=== PATIENT | male | born 1945 | race Caucasian/White ===

== ENCOUNTER 2020-11-12 15:31 | Inpatient (IN) | payer MEDICARE ==
[~2020-11-12] VITALS: Ht 167.6 cm; Wt 78.9 kg
--- NOTE | 2020-11-12 15:45 | NUR ---
Pt was at 's office, reportedly had generalized weakness; equal housing relocation, symetrical smile & tounge, facial nerves equal/symetrical. Pt c/o SOB, denies dizziness, CP, n/v. Some audible wheezing heard.
[2020-11-12 16:17] LABS: HEMATOCRIT 31.2 % (36.7-47.1); MEAN CORPUSCULAR HEMOGLOBIN 30.8 uug (23.8-33.4); MEAN CORPUSCULAR VOLUME 91.9 fL (73.0-96.2); PLATELET COUNT (AUTO) 180 K/uL (152-348)
[2020-11-12 16:18] LABS: CARBON DIOXIDE 24 mmol/L (21-32); CHLORIDE 100 mmol/L (98-107); CREATININE 2.7 mg/dL (0.6-1.3); GLUCOSE 248 mg/dL (74-106); POTASSIUM 5.5 mmol/L (3.5-5.1); UREA NITROGEN, BLOOD 67 mg/dL (7-18)
[2020-11-12 16:26] LABS: *BILIRUBIN,URIN NEGATIVE (NEGATIVE); *BLOOD, URINE 1+ (NEGATIVE); *CLARITY,URINE CLEAR (CLEAR); *COLOR,URINE YELLOW (YELLOW); *KETONES,URINE NEGATIVE (NEGATIVE); *UROBILINOGEN,URINE 0.2 E.U./dl (NORMAL); LEUKOCYTE ESTERASE ,URINE NEGATIVE (NEGATIVE); NITRITE, URINE NEGATIVE (NEGATIVE); PH,URINE 5.5 (5.0-8.0); UGLUCOSE NEGATIVE (NEGATIVE)
[2020-11-12] MEDS ORDERED: FUROSEMIDE 40 MG/4 ML VIAL IV ONE (16:30)
[2020-11-12 16:31] LABS: ALANINE AMINOTRANSFERASE 49 U/L (16-63); ALKALINE PHOSPHATASE 108 U/L (50-136); ASPARTATE AMINOTRANSFERASE 34 U/L (15-37); BILIRUBIN,DIRECT 0.2 mg/dL (0.0-0.2); BILIRUBIN,TOTAL 0.5 mg/dL (0.2-1.0); TOTAL PROTEIN, SERUM 7.6 g/dL (6.4-8.2)
[2020-11-12 16:42] LABS: MAGNESIUM 2.1 mg/dL (1.8-2.4); PHOSPHOROUS 4.4 mg/dL (2.5-4.9)
[2020-11-12] MEDS ORDERED: INSULIN REGULAR, HUMAN 300 UNIT/3 ML VIAL IV ONE (16:45)
[2020-11-12] MEDS ORDERED: DEXTROSE 50% 50 ML DISP.SYRIN IV ONE (16:45)
[2020-11-12] MEDS ORDERED: SODIUM POLYSTYRENE SULFONATE 15 G/60 ML LIQUID UDC PO ONE (16:45)
[2020-11-12] MEDS ORDERED: ALBUTEROL SULFATE 2.5 MG/3 ML NEBU NEB ONE (16:45)
[2020-11-12 16:48] LABS: BACTERIA,URINE NONE SEEN /HPF (NONE SEEN); SQUAMOUS EPITHELIAL CELL,UR FEW /HPF (NONE SEEN); WBC,URINE 0-3 /HPF (0-3)
[2020-11-12] MEDS ORDERED: FUROSEMIDE 40 MG/4 ML VIAL ONE (17:07)
[2020-11-12] MEDS ORDERED: DEXTROSE 50% 50 ML DISP.SYRIN ONE (17:08)
[2020-11-12] MEDS ORDERED: FUROSEMIDE 20 MG/2 ML VIAL ONE (17:08)
[2020-11-12] MEDS ORDERED: SODIUM POLYSTYRENE SULFONATE 15 G/60 ML LIQUID UDC ONE (17:08)
[2020-11-12] MEDS ORDERED: INSULIN REGULAR, HUMAN 300 UNIT/3 ML VIAL ONE (17:09)
[2020-11-12] MEDS ORDERED: AZIL1TAB2 PO (17:25)
[2020-11-12] MEDS ORDERED: MIRA25TA PO (17:25)
[2020-11-12] MEDS ORDERED: OMEP40CA21 PO (17:25)
[2020-11-12] MEDS ORDERED: CINA30TA2 PO (17:25)
[2020-11-12] MEDS ORDERED: IRBE150T28 PO (17:25)
[2020-11-12] MEDS ORDERED: NIFE-34 PO (17:25)
[2020-11-12] MEDS ORDERED: LEVO88TA2 PO (17:25)
[2020-11-12] MEDS ORDERED: FURO-152 PO (17:25)
[2020-11-12] MEDS ORDERED: CARV25TA PO (17:25)
[2020-11-12] MEDS ORDERED: OXYB10TA4 PO (17:25)
[2020-11-12] MEDS ORDERED: ATOR40TA PO (17:25)
[2020-11-12] MEDS ORDERED: ALLO100T PO (17:25)
[2020-11-12] MEDS ORDERED: INSU100I56 SQ (17:25)
[2020-11-12] MEDS ORDERED: TRAZ-257 PO (17:25)
[2020-11-12] MEDS ORDERED: ASPI81TA31 PO (17:25)
[2020-11-12] MEDS ORDERED: ALBUTEROL SULFATE 2.5 MG/3 ML NEBU ONE (17:29)
[2020-11-12 17:58] LABS: THYROID STIMULATING HORMONE 3.981 mIU/mL (0.358-3.740)
--- NOTE | 2020-11-12 19:15 | NUR ---
Patient will be going to telemetry room 305.
--- NOTE | 2020-11-12 19:22 | NUR ---
Patient sitting upright on bed, resting, no acute distress is noted at this time.
[2020-11-12] MEDS ORDERED: ONDANSETRON 4 MG/2 ML VIAL IV PRN (19:30)
[2020-11-12] MEDS ORDERED: MAGNESIUM HYDROXIDE 30 ML LIQUID UDC PO PRN (19:30)
[2020-11-12] MEDS ORDERED: Z GUARD REMEDY PASTE 57 GM TUBE TOP PRN (19:30)
--- NOTE | 2020-11-12 19:35 | NUR ---
Report given to RN Will.
--- NOTE | 2020-11-12 20:00 | NUR ---
Pt. admitted to telemetry room 305, under care of Dr. Higuear Belongs List completed
--- NOTE | 2020-11-12 20:15 | NUR ---
PATIENT ALERT ORIENTED, NO SOB NO CHEST PAIN, ON TELE MONITOR SINUS RHYTHM AT THIS TIME. PATIENT HAS NO COMPLAIN OF PAIN AT THIS TIME, KEPT COMFORTABLE, CONT TO MONITOR.
[2020-11-12 20:20] VITALS: BP 161/61
[2020-11-12] MEDS ORDERED: TRAZODONE 100 MG TABLET PO SCH (21:00)
[2020-11-12] MEDS: ATORVASTATIN 40 MG TABLET PO SCH (21:31)
--- NOTE | 2020-11-12 22:09 | NUR ---
NOTIFY DR MONCADA PATIENT REQUEST TO HAVE TRAZADONE MEDS AT NIGHT, WITH ORDER.
[2020-11-13] VITALS (7 sets, daily range): BP systolic 136–167; BP diastolic 51–76
[2020-11-13] MEDS: PANTOPRAZOLE SODIUM 40 MG TABLET.DR PO SCH (06:03)
--- NOTE | 2020-11-13 06:43 | NUR ---
PATIENT ALERT ORIENTED, NO SOB NO CHEST PAIN, TELE MONITOR SINUS RHYTHM, OXYGEN SAT 95 TO 96%. ASSISTED WITH TOILETING, CONT TO MONITOR.
[2020-11-13 06:54] LABS: HEMATOCRIT 29.3 % (36.7-47.1); MEAN CORPUSCULAR VOLUME 92.6 fL (73.0-96.2); PLATELET COUNT (AUTO) 172 K/uL (152-348)
[2020-11-13 07:18] LABS: CARBON DIOXIDE 27 mmol/L (21-32); CHLORIDE 104 mmol/L (98-107); CHOLESTEROL 95 mg/dL (<200); CREATININE 2.5 mg/dL (0.6-1.3); GLUCOSE 139 mg/dL (74-106); HDL CHOLESTEROL 49 mg/dL (40-60); PHOSPHOROUS 3.9 mg/dL (2.5-4.9); POTASSIUM 4.1 mmol/L (3.5-5.1); TRIGLYCERIDES 41 MG/DL (30-150); UREA NITROGEN, BLOOD 59 mg/dL (7-18)
[2020-11-13] MEDS ORDERED: NIFEdipine XL 60 MG TABSR PO SCH (09:00)
[2020-11-13] MEDS ORDERED: Mirabegron (Myrbetriq) 25 MG) PO SCH (09:00)
[2020-11-13] MEDS ORDERED: Medication Not On Formulary EA (Omeprazole 40 MG) PO SCH (09:00)
[2020-11-13] MEDS ORDERED: TRAZODONE 100 MG TABLET PO SCH (09:00)
[2020-11-13] MEDS: FUROSEMIDE 40 MG/4 ML VIAL IV SCH (09:16)
[2020-11-13] MEDS: ASPIRIN 81 MG TAB.CHEW PO SCH (09:16)
[2020-11-13] MEDS: OXYBUTYNIN XL 5 MG TABSR PO SCH (09:16)
[2020-11-13] MEDS: CINACALCET HCL 30 MG TABLET PO SCH (09:16)
[2020-11-13] MEDS: LEVOTHYROXINE SODIUM 88 MCG TABLET PO SCH (09:17)
[2020-11-13] MEDS: CARVEDILOL 25 MG TABLET PO SCH ×2 (09:17→17:51)
[2020-11-13] MEDS: ACETAMINOPHEN 325 MG TABLET PO PRN (09:29)
[2020-11-13] MEDS: TAMSULOSIN HCL 0.4 MG CAP.SR.24H PO SCH (15:14)
--- NOTE | 2020-11-13 15:16 | NUR ---
Pt received to care awake, oriented x4. No distress. Pt was compliant with medications. Pt is using a urinal. Pt was c/o headache and received Tylenol 650 mg, which was effective. side rails are up, call light is within reach.
[2020-11-13] MEDS ORDERED: NIFE90TA61 PO (16:19)
[2020-11-13] MEDS ORDERED: TRAZ-182 PO (16:19)
[2020-11-13] MEDS ORDERED: IRBE75TA11 PO (16:19)
--- NOTE | 2020-11-13 16:30 | NUR ---
Attempted to insert Morales (Fr 16). Unable to due resistance. Dr. Painting was notified.
[2020-11-13] MEDS ORDERED: DEXTROSE 50% 50 ML DISP.SYRIN IV PRN (17:00)
[2020-11-13] MEDS: TRAZODONE 50 MG TABLET PO SCH (20:27)
[2020-11-13] MEDS: ATORVASTATIN 40 MG TABLET PO SCH (20:27)
[2020-11-13] MEDS: BLOOD SUGAR DIAGNOSTIC 1 EACH STRIP VI SCH (21:00)
[2020-11-13] MEDS: INSULIN REGULAR, HUMAN 300 UNIT/3 ML VIAL SQ PRN (21:04)
[2020-11-14] VITALS: BP 133/52
[2020-11-14] MEDS: TAMSULOSIN HCL 0.4 MG CAP.SR.24H PO SCH ×3 (00:11→20:02)
--- NOTE | 2020-11-14 02:53 | NUR ---
Received patient on bed with no respiratory distress noted. Denies pain and discomfort at this time. Urinal at bedside. All due medications given and tolerated well. Accuchecks done with sliding scale given. Bandage on left index finger applies as requested d/t to trigger finger per patient information. All needs attended. Call light placed within reach. Frequent visual checks done. Will continue to monitor.
[2020-11-14 04:05] VITALS: BP 114/43
[2020-11-14] MEDS: ACETAMINOPHEN 325 MG TABLET PO PRN ×2 (04:33→10:12)
--- NOTE | 2020-11-14 05:58 | NUR ---
Patient slept throughout the night, easily arousable for care. Tylenol PRN given for headache, noted effective. All needs attended. Call light placed within reach. Will endorse to AM shift for continuity of care.
[2020-11-14] MEDS: PANTOPRAZOLE SODIUM 40 MG TABLET.DR PO SCH (06:11)
[2020-11-14] MEDS: BLOOD SUGAR DIAGNOSTIC 1 EACH STRIP VI SCH ×4 (06:35→20:37)
--- NOTE | 2020-11-14 07:00 | NUR ---
Pt received to care awake, oriented x4. No distress noted . Pt is using a urinal. call light is within reach.
[2020-11-14 07:48] LABS: HEMATOCRIT 28.8 % (36.7-47.1); MEAN CORPUSCULAR HEMOGLOBIN 31.1 uug (23.8-33.4); MEAN CORPUSCULAR VOLUME 92.2 fL (73.0-96.2); PLATELET COUNT (AUTO) 156 K/uL (152-348)
[2020-11-14] MEDS: INSULIN REGULAR, HUMAN 300 UNIT/3 ML VIAL SQ PRN ×4 (07:52→20:39)
[2020-11-14 08:01] LABS: CARBON DIOXIDE 27 mmol/L (21-32); CHLORIDE 101 mmol/L (98-107); CREATININE 2.3 mg/dL (0.6-1.3); GLUCOSE 164 mg/dL (74-106); POTASSIUM 4.2 mmol/L (3.5-5.1); UREA NITROGEN, BLOOD 50 mg/dL (7-18)
[2020-11-14] MEDS: FUROSEMIDE 40 MG/4 ML VIAL IV SCH (08:11)
[2020-11-14] MEDS: CINACALCET HCL 30 MG TABLET PO SCH (08:13)
[2020-11-14] MEDS: CARVEDILOL 25 MG TABLET PO SCH ×2 (08:13→16:06)
[2020-11-14] MEDS: LEVOTHYROXINE SODIUM 88 MCG TABLET PO SCH (08:13)
[2020-11-14] MEDS: OXYBUTYNIN XL 5 MG TABSR PO SCH (08:13)
[2020-11-14] MEDS: ASPIRIN 81 MG TAB.CHEW PO SCH (08:13)
[2020-11-14 09:13] LABS: IRON, SERUM 47 ug/dL (50-175)
[2020-11-14 09:21] LABS: FERRITIN 450 ng/mL (26-388)
--- NOTE | 2020-11-14 09:30 | NUR ---
folly catheter was inserted by dr Higuera
[2020-11-14] MEDS: NIFEdipine XL 90 MG TABSR PO SCH (10:17)
[2020-11-14 12:36] VITALS: BP 135/58
[2020-11-14 16:00] VITALS: BP 137/57
[2020-11-14] MEDS: HYDROCODONE/APAP 5-325MG TABLET PO PRN (18:08)
[2020-11-14] MEDS: TRAZODONE 50 MG TABLET PO SCH (20:02)
[2020-11-14] MEDS: ATORVASTATIN 40 MG TABLET PO SCH (20:02)
[2020-11-14 20:36] VITALS: BP 138/56
--- NOTE | 2020-11-14 21:31 | NUR ---
in room sleeping vs are stable call light with in reach
[2020-11-15 04:22] VITALS: BP 119/52
[2020-11-15] MEDS: PANTOPRAZOLE SODIUM 40 MG TABLET.DR PO SCH (06:10)
[2020-11-15] MEDS: BLOOD SUGAR DIAGNOSTIC 1 EACH STRIP VI SCH ×4 (06:29→20:55)
--- NOTE | 2020-11-15 07:30 | NUR ---
EWCEIVED PATIENT IN BED AWAKE ALERT AND ORIENTED DENIES PAIN OR DISCOMFORTS AT THIS TIME TELE IS SR REEDER CATH TO GRAVITY DRAINAGE WITH NO HEMATURIA NO S/S OF HYPO/HYPERGLYCEMIC REACTIONS AT THIS TIME CALL LIGHTS AND PERSONAL BELONGINGS ARE WITHIN EASY REACH MADE COMFORTABLE WILL CONTINUE TO OBSERVE.
[2020-11-15] MEDS: INSULIN REGULAR, HUMAN 300 UNIT/3 ML VIAL SQ PRN ×3 (07:58→20:58)
[2020-11-15] MEDS: OXYBUTYNIN XL 5 MG TABSR PO SCH (08:02)
[2020-11-15] MEDS: FUROSEMIDE 40 MG/4 ML VIAL IV SCH (08:03)
[2020-11-15] MEDS: CINACALCET HCL 30 MG TABLET PO SCH (08:03)
[2020-11-15] MEDS: TAMSULOSIN HCL 0.4 MG CAP.SR.24H PO SCH ×2 (08:03→20:08)
[2020-11-15] MEDS: ASPIRIN 81 MG TAB.CHEW PO SCH (08:03)
[2020-11-15] MEDS: CARVEDILOL 25 MG TABLET PO SCH ×2 (08:04→16:49)
[2020-11-15] MEDS: NIFEdipine XL 90 MG TABSR PO SCH (08:54)
[2020-11-15] MEDS: LEVOTHYROXINE SODIUM 88 MCG TABLET PO SCH (08:54)
[2020-11-15 10:25] LABS: HEMATOCRIT 30.6 % (36.7-47.1); MEAN CORPUSCULAR VOLUME 92.2 fL (73.0-96.2); PLATELET COUNT (AUTO) 166 K/uL (152-348)
[2020-11-15 10:28] LABS: CARBON DIOXIDE 26 mmol/L (21-32); CHLORIDE 99 mmol/L (98-107); CREATININE 2.6 mg/dL (0.6-1.3); POTASSIUM 4.3 mmol/L (3.5-5.1); UREA NITROGEN, BLOOD 59 mg/dL (7-18)
[2020-11-15 11:00] LABS: GLUCOSE 333 mg/dL (74-106)
[2020-11-15 11:36] VITALS: BP 122/56
--- NOTE | 2020-11-15 12:34 | NUR ---
SEEN IN [facility] WITH FRONT WHEEL WALKER WITH SLOW STEADY GAIT NO SOB AT THIS TIME.
[2020-11-15 15:15] VITALS: BP 125/65
--- NOTE | 2020-11-15 17:52 | NUR ---
PATIENT C/O FEELS WET CHECKED THE DIAPER NOTED VERY SMALL AMOUNT OF URINE BUT THE URINE IS FLOWING THE DRAINAGE TUBBING HAS CLEAR FRESH URINE IN IT SO I PUSHED IN THE REEDER A LITTLE AND ADDED SOME STERILE WATER INTO THE BALLOON CHANGE AND KEPT HIM DRY AND COMFORTABLE AT THIS TIME WILL CONTINUE TO OBSERVE AND INFORM DR MONCADA IF SEVERE LEAK IS NOTED.
--- NOTE | 2020-11-15 19:00 | NUR ---
Pt received to care awake, oriented x4. No distress. Pt was compliant with medications. . side rails are up, call light is within reach.
[2020-11-15] MEDS: TRAZODONE 50 MG TABLET PO SCH (20:08)
[2020-11-15] MEDS: ATORVASTATIN 40 MG TABLET PO SCH (20:08)
[2020-11-15 20:39] VITALS: BP 11/48
[2020-11-15] MEDS ORDERED: MAGNESIUM HYDROXIDE 30 ML LIQUID UDC PO PRN (20:45)
[2020-11-15] MEDS: ACETAMINOPHEN 325 MG TABLET PO PRN (22:45)
[2020-11-15] MEDS: MELATONIN 3 MG TABLET PO SCH (23:18)
[2020-11-16 00:41] VITALS: BP 156/48
--- NOTE | 2020-11-16 01:00 | NUR ---
in room sleeping vs are stable call light with in reach
[2020-11-16 04:35] VITALS: BP 120/51
[2020-11-16] MEDS: PANTOPRAZOLE SODIUM 40 MG TABLET.DR PO SCH (06:05)
[2020-11-16] MEDS: BLOOD SUGAR DIAGNOSTIC 1 EACH STRIP VI SCH ×4 (06:07→20:47)
[2020-11-16 06:41] LABS: HEMATOCRIT 28.4 % (36.7-47.1); MEAN CORPUSCULAR HEMOGLOBIN 30.6 uug (23.8-33.4); MEAN CORPUSCULAR VOLUME 91.9 fL (73.0-96.2); PLATELET COUNT (AUTO) 166 K/uL (152-348)
[2020-11-16] MEDS: INSULIN REGULAR, HUMAN 300 UNIT/3 ML VIAL SQ PRN ×3 (06:48→16:19)
[2020-11-16 07:02] LABS: CARBON DIOXIDE 26 mmol/L (21-32); CHLORIDE 97 mmol/L (98-107); CREATININE 2.5 mg/dL (0.6-1.3); GLUCOSE 191 mg/dL (74-106); POTASSIUM 4.4 mmol/L (3.5-5.1); UREA NITROGEN, BLOOD 72 mg/dL (7-18)
[2020-11-16] MEDS: CARVEDILOL 25 MG TABLET PO SCH ×2 (08:29→16:18)
[2020-11-16] MEDS: NIFEdipine XL 90 MG TABSR PO SCH (08:29)
[2020-11-16] MEDS: TAMSULOSIN HCL 0.4 MG CAP.SR.24H PO SCH ×2 (08:29→20:37)
[2020-11-16] MEDS: CINACALCET HCL 30 MG TABLET PO SCH (08:29)
[2020-11-16] MEDS: ASPIRIN 81 MG TAB.CHEW PO SCH (08:29)
[2020-11-16] MEDS: OXYBUTYNIN XL 5 MG TABSR PO SCH (08:29)
[2020-11-16] MEDS: LEVOTHYROXINE SODIUM 88 MCG TABLET PO SCH (08:30)
[2020-11-16 12:00] VITALS: BP 119/50
[2020-11-16 12:06] LABS: A/G RATIO 1.2 (0.7-1.7); ALBUMIN 3.4 g/dL (2.9-4.4); ALPHA-1-GLOBULIN 0.2 g/dL (0.0-0.4); ALPHA-2-GLOBULIN 0.8 g/dL (0.4-1.0); BETA GLOBULIN 0.9 g/dL (0.7-1.3); GAMMA GLOBULIN 0.9 g/dL (0.4-1.8); GLOBULIN, TOTAL 2.8 g/dL (2.2-3.9); M-SPIKE Not Observed g/dL (Not Observed)
--- NOTE | 2020-11-16 14:30 | NUR ---
dc folly catheter per md orders 1100 out put noted pt tolerated the procedure well
[2020-11-16 16:00] VITALS: BP 135/57
--- NOTE | 2020-11-16 19:00 | NUR ---
RECD PT IN BED,ALERT ORIENTEDX4,NO ACUTE DISTRESS NOTED,NEEDS ATTENDED TO,INCONTINENT OF URINE, KEPT DRY AND CLEAN.
[2020-11-16 20:01] VITALS: BP 122/60
[2020-11-16] MEDS: TRAZODONE 50 MG TABLET PO SCH (20:36)
[2020-11-16] MEDS: ATORVASTATIN 40 MG TABLET PO SCH (20:37)
[2020-11-16] MEDS: MELATONIN 3 MG TABLET PO SCH (20:40)
[2020-11-16] MEDS: ACETAMINOPHEN 325 MG TABLET PO PRN (20:47)
--- NOTE | 2020-11-16 22:00 | NUR ---
DUE MEDS GIVEN,BS AT HS 99, NO DIABETIC CRISIS OBSERVED.G 20ON RIGHT HAND PATENT AND INTACT, TYLENOL 650 MG GIVEN EARLIER FOR TRLH840.4, COOLING MEASURES DONE,SLEPT ON AND OFF.
[2020-11-17 01:00] VITALS: BP 122/60
[2020-11-17 01:38] VITALS: BP 122/60
--- NOTE | 2020-11-17 01:50 | NUR ---
NOTIFIED DR. FRANCOIS,REGARDINGB PT'S ELEVATED TEMP, ORDERS OBTAINED IAND CARRIED OUT, PORT CXR,BC X2 DONE,AM LABS REQUESTED, IV ATB, VANCO AND ZOSYN ADMINISTERED, MONITOR TEMP AND ANY CHANGE IN CONDITION.CALL LITE W/I REACH.
[2020-11-17] MEDS ORDERED: VANCOMYCIN IV 1,000 MG in IV DEXTROSE 5% 250 ML IV STA (02:06)
[2020-11-17] MEDS ORDERED: PIPERACILLIN SODIUM/TAZOBACTAM 3.375 G in IV DEXTROSE 5% 50 ML IV STA (02:06)
[2020-11-17] MEDS ORDERED: VANCOMYCIN IV 200 ML ONE (02:33)
[2020-11-17] MEDS ORDERED: PIPERACILLIN SODIUM/TAZO 3.375 GM VIAL ONE (02:33)
[2020-11-17] MEDS ORDERED: PIPERACILLIN SODIUM/TAZOBACTAM 3.375 G in IV DEXTROSE 5% 50 ML IV ONE (02:45)
[2020-11-17 04:12] VITALS: BP 124/76
[2020-11-17] MEDS: PANTOPRAZOLE SODIUM 40 MG TABLET.DR PO SCH (06:23)
[2020-11-17] MEDS: BLOOD SUGAR DIAGNOSTIC 1 EACH STRIP VI SCH ×4 (06:28→20:29)
[2020-11-17 06:29] LABS: HEMATOCRIT 26.9 % (36.7-47.1); MEAN CORPUSCULAR HEMOGLOBIN 31.3 uug (23.8-33.4); MEAN CORPUSCULAR VOLUME 91.5 fL (73.0-96.2); PLATELET COUNT (AUTO) 164 K/uL (152-348)
[2020-11-17 06:37] LABS: CARBON DIOXIDE 25 mmol/L (21-32); CHLORIDE 98 mmol/L (98-107); CREATININE 2.8 mg/dL (0.6-1.3); GLUCOSE 263 mg/dL (74-106); POTASSIUM 4.2 mmol/L (3.5-5.1); UREA NITROGEN, BLOOD 72 mg/dL (7-18)
[2020-11-17 07:17] LABS: *BILIRUBIN,URIN NEGATIVE (NEGATIVE); *BLOOD, URINE 2+ (NEGATIVE); *CLARITY,URINE CLEAR (CLEAR); *COLOR,URINE YELLOW (YELLOW); *KETONES,URINE NEGATIVE (NEGATIVE); *UROBILINOGEN,URINE 0.2 E.U./dl (NORMAL); LEUKOCYTE ESTERASE ,URINE 1+ (NEGATIVE); NITRITE, URINE POSITIVE (NEGATIVE); UGLUCOSE NEGATIVE (NEGATIVE)
--- NOTE | 2020-11-17 07:47 | NUR ---
Sleeping, appears comfortable
[2020-11-17] MEDS: INSULIN REGULAR, HUMAN 300 UNIT/3 ML VIAL SQ PRN ×5 (08:30→20:35)
[2020-11-17] MEDS: ASPIRIN 81 MG TAB.CHEW PO SCH (08:31)
[2020-11-17] MEDS: TAMSULOSIN HCL 0.4 MG CAP.SR.24H PO SCH ×2 (08:31→20:24)
[2020-11-17] MEDS: OXYBUTYNIN XL 5 MG TABSR PO SCH (08:31)
[2020-11-17] MEDS: CINACALCET HCL 30 MG TABLET PO SCH (08:32)
[2020-11-17] MEDS: LEVOTHYROXINE SODIUM 88 MCG TABLET PO SCH (08:32)
[2020-11-17] MEDS: NIFEdipine XL 90 MG TABSR PO SCH (08:36)
[2020-11-17] MEDS: CARVEDILOL 25 MG TABLET PO SCH ×2 (08:36→17:22)
[2020-11-17 09:04] LABS: BACTERIA,URINE NONE SEEN /HPF (NONE SEEN); SQUAMOUS EPITHELIAL CELL,UR FEW /HPF (NONE SEEN)
[2020-11-17] MEDS: PIPERACILLIN SODIUM/TAZOBACTAM 3.375 G in IV DEXTROSE 5% 100 ML IV SCH ×2 (11:03→18:32)
[2020-11-17] MEDS: ACETAMINOPHEN 325 MG TABLET PO PRN ×2 (11:03→17:23)
--- NOTE | 2020-11-17 11:05 | NUR ---
Temperature 101.3 F. Cooling measures given. Tylenol given.
[2020-11-17 11:29] VITALS: BP 119/59
--- NOTE | 2020-11-17 12:30 | NUR ---
Patient refused to eat lunch and refused Insulin coverage for BG 239
[2020-11-17 15:43] VITALS: BP 134/50
--- NOTE | 2020-11-17 17:25 | NUR ---
Temp 99.7 F. Tylenol given. Ate dinner. Insulin sliding scale given as ordered.
--- NOTE | 2020-11-17 18:24 | NUR ---
Incontinence care done. Repositioned in bed comfortably. O2 at 2L/NC
[2020-11-17 20:06] VITALS: BP 123/52
[2020-11-17] MEDS: ATORVASTATIN 40 MG TABLET PO SCH (20:24)
[2020-11-17] MEDS: TRAZODONE 50 MG TABLET PO SCH (20:24)
[2020-11-17] MEDS: MELATONIN 3 MG TABLET PO SCH (20:24)
[2020-11-18] MEDS: PIPERACILLIN SODIUM/TAZOBACTAM 3.375 G in IV DEXTROSE 5% 100 ML IV SCH ×2 (02:32→10:35)
--- NOTE | 2020-11-18 03:21 | NUR ---
Received awake alert and oriented x4 at the beginning of the shift. Patient watching TV. Needs attended. VSS. No acute distress noted.Skin intact, Tolerated po meds well. Kept comfortable. Will monitor patient.
[2020-11-18 05:14] VITALS: BP 124/53
[2020-11-18] MEDS: ACETAMINOPHEN 325 MG TABLET PO PRN (05:30)
[2020-11-18] MEDS: PANTOPRAZOLE SODIUM 40 MG TABLET.DR PO SCH (06:04)
[2020-11-18] MEDS: BLOOD SUGAR DIAGNOSTIC 1 EACH STRIP VI SCH ×4 (06:32→20:35)
[2020-11-18] MEDS: INSULIN REGULAR, HUMAN 300 UNIT/3 ML VIAL SQ PRN ×4 (07:49→20:36)
[2020-11-18] MEDS: TAMSULOSIN HCL 0.4 MG CAP.SR.24H PO SCH ×2 (08:13→20:34)
[2020-11-18] MEDS: ASPIRIN 81 MG TAB.CHEW PO SCH (08:13)
[2020-11-18] MEDS: LEVOTHYROXINE SODIUM 88 MCG TABLET PO SCH (08:14)
[2020-11-18] MEDS: NIFEdipine XL 90 MG TABSR PO SCH (08:14)
[2020-11-18] MEDS: CARVEDILOL 25 MG TABLET PO SCH ×2 (08:14→16:42)
[2020-11-18] MEDS: OXYBUTYNIN XL 5 MG TABSR PO SCH (08:14)
[2020-11-18] MEDS: CINACALCET HCL 30 MG TABLET PO SCH (08:14)
[2020-11-18 09:23] LABS: HEMATOCRIT 25.8 % (36.7-47.1); MEAN CORPUSCULAR HEMOGLOBIN 30.9 uug (23.8-33.4); MEAN CORPUSCULAR VOLUME 92.7 fL (73.0-96.2); PLATELET COUNT (AUTO) 138 K/uL (152-348)
[2020-11-18 09:36] LABS: ALANINE AMINOTRANSFERASE 20 U/L (16-63); ALKALINE PHOSPHATASE 68 U/L (50-136); ASPARTATE AMINOTRANSFERASE 24 U/L (15-37); BILIRUBIN,TOTAL 0.7 mg/dL (0.2-1.0); CARBON DIOXIDE 26 mmol/L (21-32); CHLORIDE 95 mmol/L (98-107); CREATININE 3.1 mg/dL (0.6-1.3); GLUCOSE 270 mg/dL (74-106); TOTAL PROTEIN, SERUM 6.3 g/dL (6.4-8.2); UREA NITROGEN, BLOOD 74 mg/dL (7-18)
[2020-11-18 10:58] VITALS: BP 112/47
[2020-11-18] MEDS ORDERED: IV NORMAL SALINE 500 ML IV ONE (12:45)
[2020-11-18] MEDS ORDERED: TAZOBACTAM IV SCH (14:00)
[2020-11-18] MEDS ORDERED: PIPERACILLIN SODIUM IV SCH (14:00)
[2020-11-18] MEDS ORDERED: DEXTROSE 5% IV SCH (14:00)
[2020-11-18 14:42] VITALS: BP 98/48
[2020-11-18] MEDS ORDERED: PIPERACILLIN/TAZO 2.25 G in IV DEXTROSE 5% 50 ML IV SCH ×2 (16:01→22:00)
--- NOTE | 2020-11-18 19:30 | NUR ---
RECEIVED PT AWAKE,ALERT AND ORIENTEDX4. PT IN NO ACUTE DISTRESS. PT ON OXYGEN 2L NASAL CANNULA. SAFETY AND COMFORT PROVIDED. WILL CONTINUE TO MONITOR.
[2020-11-18 20:00] VITALS: BP 112/49
[2020-11-18] MEDS: MELATONIN 3 MG TABLET PO SCH (20:35)
[2020-11-18] MEDS: TRAZODONE 50 MG TABLET PO SCH (20:35)
[2020-11-18] MEDS: ATORVASTATIN 40 MG TABLET PO SCH (20:35)
[2020-11-18] MEDS ORDERED: CEFEPIME HCL 1 G in IV DEXTROSE 5% 50 ML IV SCH (21:45)
--- NOTE | 2020-11-18 23:06 | NUR ---
bladder scan-POST VOIDAL RESIDUAL 106. PT IN NO ACUTE DISTRESS. WILL CONTINUE TO MONITOR.
[2020-11-18] MEDS ORDERED: CEFEPIME HCL 1 G in IV DEXTROSE 5% 50 ML IV ONE (23:45)
[2020-11-19 04:00] VITALS: BP 124/49
[2020-11-19] MEDS: ACETAMINOPHEN 325 MG TABLET PO PRN (04:49)
[2020-11-19] MEDS: PANTOPRAZOLE SODIUM 40 MG TABLET.DR PO SCH (06:02)
--- NOTE | 2020-11-19 06:03 | NUR ---
PT SLEPT INTERMITTENTLY. PT IN NO ACUTE DISTRESS. IV INTACT. PRESCRIBED MEDICATION GIVEN AND PT TOLERATED IT WELL. TYLENOL PRN 650 MG GIVEN FOR PT. PT AFEBRILE. PT ON 2L NASAL CANNULA. SAFETY AND COMFORT PROVIDED. ALL NEEDS ARE MET. WILL ENDORSE TO INCOMING NURSE FOR CONTINUITY OF CARE.
[2020-11-19 06:34] LABS: MEAN CORPUSCULAR HEMOGLOBIN 30.7 uug (23.8-33.4); MEAN CORPUSCULAR VOLUME 91.2 fL (73.0-96.2); PLATELET COUNT (AUTO) 143 K/uL (152-348)
--- NOTE | 2020-11-19 06:34 | NUR ---
bladder scan post voidal residual is 126 ml. Pt in no acute distress. Will continue to monitor.
--- NOTE | 2020-11-19 06:35 | NUR ---
Based on Dr order discontinue bladderscan for 2 consecutive less than 300 ml bladder scan. I got 106 and 126. PT in no acute distress and afebrile.
[2020-11-19] MEDS: BLOOD SUGAR DIAGNOSTIC 1 EACH STRIP VI SCH ×4 (06:38→20:46)
[2020-11-19 06:50] LABS: CARBON DIOXIDE 23 mmol/L (21-32); CHLORIDE 92 mmol/L (98-107); CREATININE 3.6 mg/dL (0.6-1.3); GLUCOSE 176 mg/dL (74-106); MAGNESIUM 2.2 mg/dL (1.8-2.4); PHOSPHOROUS 4.9 mg/dL (2.5-4.9); POTASSIUM 4.1 mmol/L (3.5-5.1)
[2020-11-19 07:53] LABS: UREA NITROGEN, BLOOD 87 mg/dL (7-18)
--- NOTE | 2020-11-19 07:56 | NUR ---
VIKKI from today lab reported to attending
[2020-11-19] MEDS ORDERED: CEFEPIME HCL 1 G in IV DEXTROSE 5% 50 ML IV ONE (08:00)
[2020-11-19 08:02] VITALS: BP 114/44
[2020-11-19] MEDS: INSULIN REGULAR, HUMAN 300 UNIT/3 ML VIAL SQ PRN ×4 (08:14→20:47)
[2020-11-19] MEDS: ASPIRIN 81 MG TAB.CHEW PO SCH (08:53)
[2020-11-19] MEDS: CINACALCET HCL 30 MG TABLET PO SCH (08:53)
[2020-11-19] MEDS: NIFEdipine XL 90 MG TABSR PO SCH (08:55)
[2020-11-19] MEDS: TAMSULOSIN HCL 0.4 MG CAP.SR.24H PO SCH ×2 (08:55→20:29)
[2020-11-19] MEDS: OXYBUTYNIN XL 5 MG TABSR PO SCH (08:55)
[2020-11-19] MEDS: CARVEDILOL 25 MG TABLET PO SCH ×2 (08:55→17:00)
[2020-11-19] MEDS: LEVOTHYROXINE SODIUM 88 MCG TABLET PO SCH (08:55)
[2020-11-19 12:02] VITALS: BP 107/44
[2020-11-19 15:55] VITALS: BP 122/53
[2020-11-19] MEDS ORDERED: ALBUTEROL SULFATE 2.5 MG/3 ML NEBU NEB PRN (18:15)
[2020-11-19] MEDS ORDERED: FUROSEMIDE 40 MG/4 ML VIAL IV ONE (18:15)
--- NOTE | 2020-11-19 19:33 | NUR ---
alert, oriented x4, no acute distress noted, report given to night nurse
[2020-11-19 20:04] VITALS: BP 122/57
[2020-11-19] MEDS: TRAZODONE 50 MG TABLET PO SCH (20:29)
[2020-11-19] MEDS: ATORVASTATIN 40 MG TABLET PO SCH (20:29)
[2020-11-19] MEDS: MELATONIN 3 MG TABLET PO SCH (20:29)
[2020-11-20 04:24] VITALS: BP 120/81
[2020-11-20] MEDS: ACETAMINOPHEN 325 MG TABLET PO PRN (05:08)
[2020-11-20] MEDS: LEVOTHYROXINE SODIUM 88 MCG TABLET PO SCH (06:07)
[2020-11-20] MEDS: PANTOPRAZOLE SODIUM 40 MG TABLET.DR PO SCH (06:07)
[2020-11-20] MEDS: BLOOD SUGAR DIAGNOSTIC 1 EACH STRIP VI SCH ×4 (06:20→21:26)
[2020-11-20] MEDS: INSULIN REGULAR, HUMAN 300 UNIT/3 ML VIAL SQ PRN ×3 (07:17→16:31)
[2020-11-20] MEDS: CINACALCET HCL 30 MG TABLET PO SCH (08:28)
[2020-11-20] MEDS: NIFEdipine XL 90 MG TABSR PO SCH (08:28)
[2020-11-20] MEDS: CARVEDILOL 25 MG TABLET PO SCH ×2 (08:29→16:09)
[2020-11-20] MEDS: ASPIRIN 81 MG TAB.CHEW PO SCH (08:29)
[2020-11-20] MEDS: TAMSULOSIN HCL 0.4 MG CAP.SR.24H PO SCH ×2 (08:29→20:18)
[2020-11-20] MEDS: OXYBUTYNIN XL 5 MG TABSR PO SCH (08:29)
[2020-11-20] MEDS: CEFEPIME HCL 1 G in IV DEXTROSE 5% 50 ML IV SCH (08:30)
[2020-11-20 12:22] VITALS: BP 132/56
[2020-11-20 14:26] LABS: HEMATOCRIT 26.5 % (36.7-47.1); MEAN CORPUSCULAR HEMOGLOBIN 31.5 uug (23.8-33.4); MEAN CORPUSCULAR VOLUME 91.4 fL (73.0-96.2); PLATELET COUNT (AUTO) 172 K/uL (152-348)
[2020-11-20 14:38] LABS: CARBON DIOXIDE 25 mmol/L (21-32); CHLORIDE 92 mmol/L (98-107); CREATININE 3.7 mg/dL (0.6-1.3); GLUCOSE 272 mg/dL (74-106); POTASSIUM 4.5 mmol/L (3.5-5.1)
[2020-11-20 14:42] LABS: UREA NITROGEN, BLOOD 96 mg/dL (7-18)
[2020-11-20 14:45] LABS: ALANINE AMINOTRANSFERASE 25 U/L (16-63); ALKALINE PHOSPHATASE 78 U/L (50-136); ASPARTATE AMINOTRANSFERASE 25 U/L (15-37); BILIRUBIN,TOTAL 0.4 mg/dL (0.2-1.0); LIPASE 185 U/L (73-393)
[2020-11-20] MEDS: INSULIN GLARGINE,HUM 300 UNITS/3 ML CARTRIDGE SQ SCH (14:57)
--- NOTE | 2020-11-20 15:31 | NUR ---
pt is wheezing md notified about the lab result
[2020-11-20] MEDS ORDERED: FUROSEMIDE 20 MG/2 ML VIAL IV SCH (16:00)
[2020-11-20 16:03] VITALS: BP 117/51
[2020-11-20] MEDS ORDERED: IV NS 1000 ML 1,000 ML IV ONE (17:45)
[2020-11-20 20:10] VITALS: BP 123/58
[2020-11-20] MEDS: TRAZODONE 50 MG TABLET PO SCH (20:18)
[2020-11-20] MEDS: MELATONIN 3 MG TABLET PO SCH (20:18)
[2020-11-20] MEDS: ATORVASTATIN 40 MG TABLET PO SCH (20:18)
[2020-11-21] MEDS: ACETAMINOPHEN 325 MG TABLET PO PRN ×2 (04:08→15:57)
[2020-11-21 04:15] VITALS: BP 129/55
[2020-11-21] MEDS: PANTOPRAZOLE SODIUM 40 MG TABLET.DR PO SCH (05:58)
[2020-11-21] MEDS: BLOOD SUGAR DIAGNOSTIC 1 EACH STRIP VI SCH ×4 (05:58→20:28)
[2020-11-21] MEDS: LEVOTHYROXINE SODIUM 88 MCG TABLET PO SCH (05:58)
[2020-11-21 07:05] LABS: CARBON DIOXIDE 24 mmol/L (21-32); CHLORIDE 96 mmol/L (98-107); CREATININE 3.5 mg/dL (0.6-1.3); GLUCOSE 146 mg/dL (74-106); MAGNESIUM 2.5 mg/dL (1.8-2.4); PHOSPHOROUS 4.9 mg/dL (2.5-4.9); POTASSIUM 4.1 mmol/L (3.5-5.1)
[2020-11-21 07:08] LABS: UREA NITROGEN, BLOOD 96 mg/dL (7-18)
[2020-11-21 07:12] LABS: MEAN CORPUSCULAR HEMOGLOBIN 30.8 uug (23.8-33.4); PLATELET COUNT (AUTO) 183 K/uL (152-348)
--- NOTE | 2020-11-21 07:30 | NUR ---
Patient received in bed with eyes closed, but easily arousable. NPO this morning, awaiting abd U/S. Right UA IV is intact and finished running the 1L of NS from PM shift. No redness or swelling noted at the IV site at this time. Patient on 2L O2 via NC with no SOB or difficulties breathing. No acute distress noted at this time.
[2020-11-21] MEDS: CEFEPIME HCL 1 G in IV DEXTROSE 5% 50 ML IV SCH (08:14)
[2020-11-21 08:24] VITALS: BP 126/56
--- NOTE | 2020-11-21 09:27 | NUR ---
Abdominal U/S taking place at bedside at this time.
[2020-11-21] MEDS: CINACALCET HCL 30 MG TABLET PO SCH (09:40)
[2020-11-21] MEDS: TAMSULOSIN HCL 0.4 MG CAP.SR.24H PO SCH ×2 (09:40→20:06)
[2020-11-21] MEDS: ASPIRIN 81 MG TAB.CHEW PO SCH (09:40)
[2020-11-21] MEDS: OXYBUTYNIN XL 5 MG TABSR PO SCH (09:40)
[2020-11-21] MEDS: NIFEdipine XL 90 MG TABSR PO SCH (09:41)
[2020-11-21] MEDS: CARVEDILOL 25 MG TABLET PO SCH ×2 (09:41→16:03)
[2020-11-21] MEDS: INSULIN REGULAR, HUMAN 300 UNIT/3 ML VIAL SQ PRN ×4 (09:42→20:29)
[2020-11-21 11:27] VITALS: BP 129/59
[2020-11-21] MEDS ORDERED: FUROSEMIDE 40 MG/4 ML VIAL IV ONE (11:30)
--- NOTE | 2020-11-21 14:08 | NUR ---
Noted new orders to transfer to telemetry. Patient now on monitor.
[2020-11-21 15:00] VITALS: BP 130/60
[2020-11-21] MEDS: FUROSEMIDE 20 MG/2 ML VIAL IV SCH (16:04)
--- NOTE | 2020-11-21 18:40 | NUR ---
RECEIVED PT AWAKE,ALERT AND ORIENTEDX4. PT IN NO ACUTE DISTRESS. PT ON OXYGEN 1L NASAL CANNULA. SAFETY AND COMFORT PROVIDED. WILL CONTINUE TO MONITOR.
[2020-11-21] MEDS: MELATONIN 3 MG TABLET PO SCH (20:06)
[2020-11-21] MEDS: ATORVASTATIN 40 MG TABLET PO SCH (20:06)
[2020-11-21] MEDS: TRAZODONE 50 MG TABLET PO SCH (20:06)
[2020-11-21] MEDS: INSULIN GLARGINE,HUM 300 UNITS/3 ML CARTRIDGE SQ SCH (20:09)
[2020-11-21 20:10] VITALS: BP 104/54
[2020-11-21] MEDS: CEFEPIME HCL 2 G in IV DEXTROSE 5% 100 ML IV SCH (20:11)
[2020-11-22] VITALS: BP 97/55
--- NOTE | 2020-11-22 03:13 | NUR ---
pt is deep sleeping his heart rate went to 42 recheck the pt vs are bp 135/65/resp 20 and temp is 98 no c/o chest pain noted ,pt said he is fine , made aware
[2020-11-22 04:48] VITALS: BP 133/60
--- NOTE | 2020-11-22 05:41 | NUR ---
PT SLEPT INTERMITTENTLY. PT IN NO ACUTE DISTRESS. IV INTACT. PT ON 1L NASAL CANNULA. SAFETY AND COMFORT PROVIDED. ALL NEEDS ARE MET. WILL ENDORSE TO INCOMING NURSE FOR CONTINUITY OF CARE.
[2020-11-22] MEDS: BLOOD SUGAR DIAGNOSTIC 1 EACH STRIP VI SCH ×4 (06:29→20:21)
[2020-11-22] MEDS: PANTOPRAZOLE SODIUM 40 MG TABLET.DR PO SCH (06:29)
[2020-11-22] MEDS: LEVOTHYROXINE SODIUM 88 MCG TABLET PO SCH (06:29)
[2020-11-22 06:38] LABS: HEMATOCRIT 25.2 % (36.7-47.1); MEAN CORPUSCULAR HEMOGLOBIN 31.4 uug (23.8-33.4); MEAN CORPUSCULAR VOLUME 91.8 fL (73.0-96.2); PLATELET COUNT (AUTO) 206 K/uL (152-348)
[2020-11-22 07:06] LABS: CARBON DIOXIDE 27 mmol/L (21-32); CHLORIDE 101 mmol/L (98-107); CREATININE 2.8 mg/dL (0.6-1.3); GLUCOSE 159 mg/dL (74-106)
[2020-11-22 07:12] LABS: UREA NITROGEN, BLOOD 89 mg/dL (7-18)
[2020-11-22] MEDS ORDERED: CEFEPIME HCL 2 G in IV DEXTROSE 5% 100 ML IV SCH (08:00)
[2020-11-22] MEDS: FUROSEMIDE 20 MG/2 ML VIAL IV SCH (08:19)
[2020-11-22] MEDS: ASPIRIN 81 MG TAB.CHEW PO SCH (08:19)
[2020-11-22] MEDS: OXYBUTYNIN XL 5 MG TABSR PO SCH (08:19)
[2020-11-22] MEDS: TAMSULOSIN HCL 0.4 MG CAP.SR.24H PO SCH ×2 (08:19→20:09)
[2020-11-22] MEDS: NIFEdipine XL 90 MG TABSR PO SCH (08:25)
[2020-11-22] MEDS: CARVEDILOL 25 MG TABLET PO SCH ×2 (08:25→17:07)
[2020-11-22] MEDS: CINACALCET HCL 30 MG TABLET PO SCH (08:26)
--- NOTE | 2020-11-22 10:30 | NUR ---
Physical therapy saw patient. Pt SBA with transfers and ambulation w/o issue on balance. Pt tolerated physical therapy.
[2020-11-22 12:00] VITALS: BP 129/54
[2020-11-22] MEDS: INSULIN REGULAR, HUMAN 300 UNIT/3 ML VIAL SQ PRN ×3 (12:53→21:00)
[2020-11-22 16:00] VITALS: BP 120/73
--- NOTE | 2020-11-22 17:30 | NUR ---
Midline Dressing change in sterile technique. No redness on insertion site of midline. Pt is in no acute distress. Call light is within reach.
[2020-11-22] MEDS: TRAZODONE 50 MG TABLET PO SCH (20:09)
[2020-11-22] MEDS: ATORVASTATIN 40 MG TABLET PO SCH (20:09)
[2020-11-22] MEDS: HYDROCODONE/APAP 5-325MG TABLET PO PRN (20:11)
[2020-11-22] MEDS: MELATONIN 3 MG TABLET PO SCH (20:12)
[2020-11-22] MEDS: CEFEPIME HCL 2 G in IV DEXTROSE 5% 100 ML IV SCH (20:22)
[2020-11-22 20:36] VITALS: BP 120/53
[2020-11-22] MEDS: INSULIN GLARGINE,HUM 300 UNITS/3 ML CARTRIDGE SQ SCH (20:57)
[2020-11-23 00:19] VITALS: BP 118/45
[2020-11-23 04:25] VITALS: BP 126/51
[2020-11-23 06:04] LABS: HEMATOCRIT 26.9 % (36.7-47.1); MEAN CORPUSCULAR HEMOGLOBIN 30.7 uug (23.8-33.4); MEAN CORPUSCULAR VOLUME 91.1 fL (73.0-96.2); PLATELET COUNT (AUTO) 235 K/uL (152-348)
[2020-11-23] MEDS: LEVOTHYROXINE SODIUM 88 MCG TABLET PO SCH (06:42)
[2020-11-23] MEDS: PANTOPRAZOLE SODIUM 40 MG TABLET.DR PO SCH (06:42)
[2020-11-23] MEDS: BLOOD SUGAR DIAGNOSTIC 1 EACH STRIP VI SCH ×2 (06:47→10:59)
[2020-11-23 07:04] LABS: ALANINE AMINOTRANSFERASE 18 U/L (16-63); ALKALINE PHOSPHATASE 75 U/L (50-136); ASPARTATE AMINOTRANSFERASE 19 U/L (15-37); BILIRUBIN,TOTAL 0.5 mg/dL (0.2-1.0); CARBON DIOXIDE 28 mmol/L (21-32); CHLORIDE 104 mmol/L (98-107); CREATININE 2.7 mg/dL (0.6-1.3); GLUCOSE 108 mg/dL (74-106); POTASSIUM 3.8 mmol/L (3.5-5.1); TOTAL PROTEIN, SERUM 6.8 g/dL (6.4-8.2)
[2020-11-23 07:06] LABS: UREA NITROGEN, BLOOD 81 mg/dL (7-18)
[2020-11-23 07:09] LABS: MAGNESIUM 2.2 mg/dL (1.8-2.4); PHOSPHOROUS 4.2 mg/dL (2.5-4.9)
[2020-11-23] MEDS: ASPIRIN 81 MG TAB.CHEW PO SCH (08:06)
[2020-11-23] MEDS: CARVEDILOL 25 MG TABLET PO SCH (08:06)
[2020-11-23] MEDS: OXYBUTYNIN XL 5 MG TABSR PO SCH (08:06)
[2020-11-23] MEDS: TAMSULOSIN HCL 0.4 MG CAP.SR.24H PO SCH (08:06)
[2020-11-23] MEDS: NIFEdipine XL 90 MG TABSR PO SCH (08:06)
[2020-11-23] MEDS: CINACALCET HCL 30 MG TABLET PO SCH (08:06)
[2020-11-23] MEDS ORDERED: FURO-152 PO (08:56)
[2020-11-23] MEDS ORDERED: NIFE90TA61 PO (08:56)
[2020-11-23] MEDS ORDERED: Levothyroxine Sodium PO (08:56)
[2020-11-23] MEDS ORDERED: FUROSEMIDE 40 MG TABLET PO SCH (09:00)
[2020-11-23] MEDS ORDERED: FUROSEMIDE 20 MG/2 ML VIAL IV ONE (10:15)
[2020-11-23 11:58] VITALS: BP 124/55
[2020-11-23] MEDS: INSULIN REGULAR, HUMAN 300 UNIT/3 ML VIAL SQ PRN (12:00)
--- NOTE | 2020-11-23 15:32 | NUR ---
dc orders received noted and carried out,dc instruction and education given to the pt,dc midline per md orders,pt left the facility via private car in stable condition
[2020-11-24] MEDS ORDERED: GLUCERNA SHAKE VANILLA 237 ML CAN PO SCH (09:00)
== END 2020-11-23 15:30 | disposition home or self-care (01) | DRG 291 ==
LOC: ER 15:33 → TELE3 19:42 → MEDSURG3 11-16 10:12 → TELE3 11-21 14:07 → MEDSURG3 11-23 10:40
PROVIDERS: ADMIT Family Medicine; ATTEND Internal Medicine
PROC: 05H533Z Insertion of Infusion Device into Right Subclavian Vein, Percutaneous Approach (ICD-10-PCS; principal; 2020-11-18)
PROC: B546ZZA Ultrasonography of Right Subclavian Vein, Guidance (ICD-10-PCS; 2020-11-18)
DX: I13.0 Hypertensive heart and chronic kidney disease with heart failure and stage 1 through stage 4 chronic kidney disease, or unspecified chronic kidney disease (principal); A41.9 Sepsis, unspecified organism; J96.01 Acute respiratory failure with hypoxia; N17.0 Acute kidney failure with tubular necrosis; I50.33 Acute on chronic diastolic (congestive) heart failure; J15.9 Unspecified bacterial pneumonia; N39.0 Urinary tract infection, site not specified; N13.8 Other obstructive and reflux uropathy; E87.1 Hypo-osmolality and hyponatremia; N18.4 Chronic kidney disease, stage 4 (severe); I50.9 Heart failure, unspecified; D63.8 Anemia in other chronic diseases classified elsewhere; E11.22 Type 2 diabetes mellitus with diabetic chronic kidney disease; N18.9 Chronic kidney disease, unspecified; E03.9 Hypothyroidism, unspecified; E87.5 Hyperkalemia; M06.9 Rheumatoid arthritis, unspecified; Z20.822 Contact with and (suspected) exposure to COVID-19; N40.1 Benign prostatic hyperplasia with lower urinary tract symptoms; Z88.2 Allergy status to sulfonamides; E78.5 Hyperlipidemia, unspecified; E66.9 Obesity, unspecified; Z68.28 Body mass index [BMI] 28.0-28.9, adult; R33.9 Retention of urine, unspecified; E11.65 Type 2 diabetes mellitus with hyperglycemia; E21.3 Hyperparathyroidism, unspecified; Z79.4 Long term (current) use of insulin
CPT/HCPCS: 36415; 70030-TC; 71045; 71250; 76705; 76770; 83550; 83605; 83690; 83735; 84100; 84155; 84165; 84443; 85025; 85730; 87040; 87086; 93005; 93307; 93880; 94640; 97161; A4663; G0378; J0692; J1815; J1940; J2405; J2543; J3370; J3490; J7030; J7040; J7060